=== PATIENT | male | born 1965 | race Caucasian/White ===

== ENCOUNTER 2016-06-01 10:53 | Day surgery (SDC) | payer OTHER ==
[2016-05-29 15:15] VITALS: BMI 28.8
[~2016-06-01 10:53] MED LIST: LACTATED RINGERS 1,000 ML IV SCH
[2016-06-01] MEDS ORDERED: LIDOCAINE 1% 20 ML VIAL (10MG/ML) FOR IV START INTRADERMA ONE (11:07)
[2016-06-01 11:15] VITALS: RESP 16; TEMP 97.7
[2016-06-01 11:17] LABS: Glucose,Whole Blood 137 mg/dL (75-99)
[2016-06-01] MEDS ORDERED: LIDOCAINE 1% INJ 10MG/ML (20 ML MDV) ONE (11:20)
[2016-06-01] MEDS ORDERED: PROPOFOL 10 MG/ML 20 ML VIAL IV ONE (11:20)
--- NOTE | 2016-06-01 11:27 | P.GSHP ---
History of Present Illness H&P Date: 06/01/16 Chief Complaint: Screening colonoscopy This a 51-year-old male referred from Dr. Elisabeth Jain. Patient presents today for screening colonoscopy. He's never had a colonoscopy performed before. Patient has a strong family history of colon cancer with his father having colon cancer. Past Medical History Past Medical History: Diabetes Mellitus, Hyperlipidemia, Hypertension History of Any Multi-Drug Resistant Organisms: None Reported Past Surgical History: Orthopedic Surgery Additional Past Surgical History / Comment(s): LEFT SHOULDER SURGERY Past Anesthesia/Blood Transfusion Reactions: No Reported Reaction Past Psychological History: No Psychological Hx Reported Smoking Status: Never smoker Past Alcohol Use History: Occasional Past Drug Use History: None Reported - Past Family History Mother Family Medical History: No Reported History, Cancer (Colon cancer) Brother(s) Family Medical History: Cancer Additional Family Medical History / Comment(s): LYMPHOMA Father Family Medical History: Cancer Additional Family Medical History / Comment(s): COLON CANCER Medications and Allergies Home Medications Medication Instructions Recorded Confirmed Type Atorvastatin [Lipitor] 40 mg PO HS 05/29/16 06/01/16 History Levothyroxine Sodium [Synthroid] 75 mcg PO DAILY 05/29/16 06/01/16 History Lisinopril [Zestril] 10 mg PO DAILY 05/29/16 06/01/16 History amLODIPine [Norvasc] 5 mg PO HS 05/29/16 06/01/16 History metFORMIN HCL [Glucophage] 500 mg PO TID 05/29/16 06/01/16 History Allergies Allergy/AdvReac Type Severity Reaction Status Date / Time No Known Allergies Allergy Verified 06/01/16 11:05 Surgical - Exam Vital Signs Temp Pulse Resp BP Pulse Ox 97.7 F 85 16 130/73 96 06/01/16 11:11 06/01/16 11:11 06/01/16 11:11 06/01/16 11:11 06/01/16 11:11 - General well developed, well nourished, no distress - Eyes PERRL - ENT normal pinna - Neck no masses - Respiratory normal expansion - Cardiovascular Rhythm: regular - Abdomen Abdomen: non tender Results - Labs Abnormal Lab Results - Last 24 Hours (Table) 06/01/16 Range/Units 11:14 POC Glucose (mg/dL) 137 H (75-99) mg/dL Assessment and Plan Plan: 51-year-old male. We'll perform initial screening colonoscopy.
--- NOTE | 2016-06-01 11:41 | P.OP ---
Date of Procedure: 06/01/16 Preoperative Diagnosis: Screening colonoscopy Postoperative Diagnosis: Normal colon Procedure(s) Performed: Colonoscopy Anesthesia: MAC Surgeon: Curly Lemos Pathology: none sent Condition: stable Disposition: PACU Description of Procedure: PROCEDURE: The patient was placed on the endoscopy table in the lateral position. Digital rectal examination was performed which revealed no abnormalities. The prostate was symmetrical without nodules. Flexible colonoscope was then placed in the patient's anus and passed throughout the entire colon. The ileocecal valve was visualized. The cecum, ascending, transverse, descending and sigmoid colon were normal. The rectum was normal as well. There were no masses, polyps or diverticula noted in the entire colon. SUMMARY OF FINDINGS: Normal colonoscopy.
[2016-06-01 12:16] VITALS: BP 103/65; PULSE 67
== END 2016-06-01 12:48 | disposition home or self-care (01) ==
LOC: ORWHC2ENDO 10:53
PROVIDERS: ATTEND Surgery
DX: Z12.11 Encounter for screening for malignant neoplasm of colon (principal); Z80.0 Family history of malignant neoplasm of digestive organs; I10 Essential (primary) hypertension; E78.5 Hyperlipidemia, unspecified; E11.9 Type 2 diabetes mellitus without complications; Z79.84 Long term (current) use of oral hypoglycemic drugs; Z79.899 Other long term (current) drug therapy
CPT/HCPCS: J2001; J2704; G0105; 99153

== ENCOUNTER → 2017-10-29 | Outpatient (CLI) | payer OTHER ==
[2017-10-30 12:49] LABS: Smooth Muscle Antibody 9 UNITS (<20)
== END | disposition home or self-care (01) ==
LOC: LABWHC1 11:24
PROVIDERS: ATTEND Psychiatry & Neurology Pain Medicine
DX: H02.409 Unspecified ptosis of unspecified eyelid (principal); R13.12 Dysphagia, oropharyngeal phase
CPT/HCPCS: 36415; 82550; 83516; 83519

== ENCOUNTER → 2017-11-15 | Outpatient (CLI) | payer OTHER ==
--- NOTE | 2017-11-15 10:15 | CT ---
EXAMINATION TYPE: CT chest wo con DATE OF EXAM: 11/15/2017 COMPARISON: NONE HISTORY: Ptosis, thymus, possible thyroid disorder, trouble swallowing CT DLP: 491.0 mGycm. Automated Exposure Control for Dose Reduction was Utilized. TECHNIQUE: CT scan of the thorax is performed without IV contrast. FINDINGS: LUNGS: The lungs are grossly clear, there is no concerning parenchymal mass or nodule identified. T here is no pleural effusion or pneumothorax seen. The tracheobronchial tree is patent. MEDIASTINUM: Lack of IV contrast is noted to limit evaluation for mediastinal and especially hilar ad enopathy. There are no definitive greater than 1 cm hilar or mediastinal lymph nodes. No cardiomega ly or pericardial effusion is seen. There is mild focal coronary artery calcification proximal LAD or igin axial image 30. Thyroid is somewhat small in size. 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 Mild multilevel spurri ng in the spine is present. There is just under 1 cm left adrenal mass or nodule axial image 59, Houn sfield units are greater than 10. There is presumed benign based on size. Consider further investigat ion. IMPRESSION: Somewhat small thyroid. No suspicious anterior superior mediastinal mass or thymic neopla sm.
--- NOTE | 2017-11-15 11:08 | CT ---
EXAMINATION TYPE: CT soft tissue neck wo con DATE OF EXAM: 11/15/2017 HISTORY: Trouble swallowing, possible thyroid issues COMPARISON: NONE CT DLP: 380.80 mGycm. Automated Exposure Control for Dose Reduction was Utilized. TECHNIQUE: CT scan of the neck is performed without IV contrast, axial images are obtained, coronal and sagittal reformatted images are reviewed. FINDINGS: Evaluation suboptimal due to lack of IV contrast limiting evaluation for subcentimeter lymp h nodes and mucosal lesions. Airway: Thyroid gland is small in size, there is greater than 1 cm right thyroid nodule coronal image 37 that warrants follow-up. Parotid/submandibular glands: No gross abnormality seen. Carotid/Vascular Structures: No suspicious calcified plaque is present in carotid bulb level bilatera lly Osseous Structures: Spine is straightened with mild spurring C5-C6 level. Slight S-shaped scoliotic c urvature on coronal images is noted. Other: No suspicious greater than 1 cm neck adenopathy is seen. IMPRESSION: There is greater than 1 cm right thyroid nodule. Follow-up thyroid ultrasound is advised to further evaluate and characterize.
--- NOTE | 2017-11-15 11:17 | FL ---
EXAMINATION TYPE: FL barium swallow DATE OF EXAM: 11/15/2017 CLINICAL HISTORY: Proximal dysphasia for 2 years. TECHNIQUE: A double contrast esophagram is performed utilizing air and barium. A total of 1.22 geraldo eduardo of fluoroscopic time was utilized during procedure. 29 spot images are saved during procedure. COMPARISON: Same-day CT neck and chest studies. FINDINGS: The esophagus shows satisfactory motility and emptying into the stomach. There is persiste nt posterior impression or narrowing of the proximal esophagus near origin at roughly C6 level, no co rresponding abnormality is seen on CT. This could reflect a congenital bridge or focal stricture. No mucosal irregularity is seen to suggest neoplasm. Small sliding-type hiatal hernia is present. No int raluminal mass is noted. No significant gastroesophageal reflux was seen during real time performance of this study. Patient did have to episodes of aspiration during performance of study, one cleared w ith coughing, second did not completely clear with coughing. IMPRESSION: Proximal posterior proximal esophagus narrowing near origin could be congenital anomaly a s no obvious mass or neoplasm is present when correlating with same day CT. Cannot exclude mild to m oderate posterior stricture. Patient had 2 episodes of aspiration. Consider further investigation wit h speech therapy referral and/or modified barium swallow to reassess.
== END | disposition home or self-care (01) ==
LOC: RADCTMAIN 09:13
PROVIDERS: ATTEND Psychiatry & Neurology Neurology
DX: K22.8 Other specified diseases of esophagus (principal); E04.1 Nontoxic single thyroid nodule; E32.9 Disease of thymus, unspecified
CPT/HCPCS: 70490; 71250; 74220

== ENCOUNTER → 2017-11-21 | Outpatient (CLI) | payer OTHER ==
--- NOTE | 2017-11-22 01:47 | MR ---
EXAMINATION TYPE: MR brain wo con DATE OF EXAM: 11/21/2017 COMPARISON: NONE HISTORY: Dizzy, Headaches Standard multiplanar, multisequence MRI departmental protocol Multiplanar, multisequence images of the brain were acquired. Diffusion weighted imaging was performe d. FINDINGS: The ventricles and sulci appear fairly normal. There is no mass effect nor midline shift. T here is no sign of intracranial hemorrhage. I see no evidence of cerebral edema. There is very mild t hinning of the corpus callosum. Brainstem is intact. Sella turcica appears normal. There is no eviden ce of a posterior fossa mass. IMPRESSION: There is mild cerebral atrophy appropriate for age. Otherwise negative exam. Mild thinning of the cor pus callosum.
== END | disposition home or self-care (01) ==
LOC: RADMRIMAIN 16:23
PROVIDERS: ATTEND Psychiatry & Neurology Pain Medicine
DX: G31.9 Degenerative disease of nervous system, unspecified (principal); G93.89 Other specified disorders of brain; H53.8 Other visual disturbances; H02.409 Unspecified ptosis of unspecified eyelid
CPT/HCPCS: 70551

== ENCOUNTER → 2017-12-18 | Outpatient (CLI) | payer OTHER ==
[2017-12-18 13:14] LABS: T4, Free (Free Thyroxine) 0.95 ng/dL (0.78-2.19)
== END | disposition home or self-care (01) ==
LOC: LABWHC1 11:29
PROVIDERS: ATTEND Psychiatry & Neurology Pain Medicine
DX: E03.9 Hypothyroidism, unspecified (principal); R53.83 Other fatigue
CPT/HCPCS: 36415; 84439; 84443; 84481

== ENCOUNTER 2018-01-28 12:23 | Day surgery (SDC) | payer OTHER ==
[2018-01-27 09:34] VITALS: BMI 29.0
[~2018-01-28 12:23] MED LIST changes: -LACTATED RINGERS 1,000 ML IV SCH; +SODIUM CHLORIDE 0.9% 1,000 ML IV SCH
[2018-01-28 13:05] VITALS: BP 121/77; PULSE 83; RESP 18; TEMP 98.1
--- NOTE | 2018-01-28 15:41 | P.PCN ---
Preoperative Diagnosis: Symptoms Recurrent dizzy spells and loss of consciousness Twelve-lead ECG Sinus rhythm normal NE narrow QRS early repolarization abnormality inferolaterally Tilt table test per protocol This line heart rate 62 beats a minute Baseline blood pressure 113/68 mmHg patient was tilted upright at an angle of 70 per protocol is a mild decrease in blood pressure to 93 mmHg systolic within the first 2 minutes and thereafter the blood pressure remained in the high 90s. He had no symptoms When he was laid supine his blood pressure returned 106/63 mmHg impression No evidence for neurocardiogenic syncope but with assuming upright position there was a drop in blood pressure of 5-10 mmHg and a corresponding mild increase in heart rate.
== END 2018-01-28 14:58 | disposition home or self-care (01) ==
LOC: CATHEP 12:23
PROVIDERS: ATTEND Internal Medicine Clinical Cardiac Electrophysiology
DX: R42 Dizziness and giddiness (principal); R55 Syncope and collapse
CPT/HCPCS: 93660

== ENCOUNTER → 2018-05-05 | Outpatient (CLI) | payer OTHER ==
--- NOTE | 2018-05-05 12:08 | FL ---
EXAMINATION TYPE: FL barium swallow w video DATE OF EXAM: 05/05/2018 MODIFIED SWALLOW / DEGLUTITION STUDY CLINICAL HISTORY: Dysphagia. TECHNIQUE: Deglutition study is performed utilizing thin liquid barium, barium thick putting, and ba rium coated cracker. A total of 1 minute 53 seconds of fluoroscopic time was utilized during procedur e. 0 spot images are saved to PACS. COMPARISON: Prior CT neck and esophagram November 15, 2017. FINDINGS: The oral phase shows satisfactory initiation with all modalities tested. There is poor pr opagation with diminished posterior tongue base motion. Satisfactory mastication is seen with solid m odalities tested. There is no evidence of penetration or aspiration with any modality tested. Mild t o severe pharyngeal residue was appreciated more prominent with more viscous modalities. There is red emonstration in the proximal esophagus of well-defined posterior narrowing or cricopharyngeal bar jerad t could reflect a congenital bridge or focal stricture. IMPRESSION: No aspiration. Persistent prominent cricopharyngeal bar causing significant narrowing of the proximal esophagus. Diminished propagation could be related to muscular dysfunction. This accoun ts for sparing degrees of pharyngeal residual more prominent with more viscous modalities. Consider E NT and/or GI referral. Please refer to speech therapist notes for further details if necessary.
== END ==
LOC: RADFLMAIN 10:54
PROVIDERS: ATTEND Internal Medicine
DX: K22.8 Other specified diseases of esophagus (principal)
CPT/HCPCS: 74230

== ENCOUNTER 2018-07-11 06:40 | Day surgery (SDC) | payer OTHER ==
[2018-07-09 14:42] VITALS: BMI 29.7
[~2018-07-11 06:40] MED LIST changes: +LACTATED RINGERS 1,000 ML IV SCH; -SODIUM CHLORIDE 0.9% 1,000 ML IV SCH
[2018-07-11 07:19] VITALS: TEMP 98.2
[2018-07-11] MEDS ORDERED: LIDOCAINE 1% INJ 10MG/ML (20 ML MDV) ONE (07:32)
[2018-07-11] MEDS ORDERED: PROPOFOL 10 MG/ML 20 ML VIAL IV ONE (07:32)
[2018-07-11 07:55] VITALS: RESP 16
--- NOTE | 2018-07-11 08:09 | P.PCN ---
Date of Procedure: 07/11/18 Procedure(s) Performed: BRIEF HISTORY: Patient is a 53-year-old, pleasant, white male, with history of ocular pharyngeal muscular dystrophy has been having progressive dysphagia to solids for the last 5 years duration. Lately her symptoms have been getting worse. Often with solids but never with liquids. He did have a barium esophagogram done that showed prominent fecal pharyngeal brought into the proximal esophagus with narrowing and poor propagation of food in the pharynx and poor pharyngeal peristalsis. Because of these findings is scheduled for an upper endoscopy with possible dilation. PROCEDURE PERFORMED: Esophagogastroduodenoscopy with biopsy. PREOPERATIVE DIAGNOSIS: Progressive dysphagia to solids of 5 years duration. IV sedation per anesthesia. PROCEDURE: After informed consent was obtained, the patient was brought into the endoscopy unit. IV sedation was administered by Anesthesia under continuous monitoring. Initially the Olympus GIF-140 video endoscope was inserted into the mouth. Esophagus intubated without any difficulty. It was gradually advanced into the stomach and duodenum and carefully examined. The bulb and the second part of the duodenum appeared normal. The scope at this time was withdrawn to the stomach, adequately insufflated with air, and upon careful examination, mucosa of the antrum had mild gastritis and biopsies were done from this area. The, body, cardia and the fundus appeared normal. The scope was then withdrawn into the esophagus. The GE junction was located at 39 cm from the incisors. The esophagus appeared normal. There were no erosions or ulcerations seen. The proximal cervical esophagus was very carefully examined and no obvious abnormality identified. There was no evidence of paper pharyngeal dysfunction or click of pharyngeal part identified. Biopsies were done from the distal esophagus and the patient tolerated the procedure well. IMPRESSION: 1. Normal-appearing esophagus with no evidence of esophagitis, esophageal stricture or cricopharyngeal dysfunction. 2. Mild antral gastritis. RECOMMENDATIONS: The findings of this examination were discussed with the patient as well as her his family. He was advised to follow with the biopsy results. At this time it appears that the dysphagia is mostly likely oropharyngeal in etiology related to muscular dystrophy.
[2018-07-11 08:16] VITALS: BP 102/69; PULSE 61
[2018-07-11 11:59] LABS: Glucose,Whole Blood 106 mg/dL (75-99)
== END 2018-07-11 08:47 | disposition home or self-care (01) ==
LOC: ORWHC2ENDO 06:40
PROVIDERS: ATTEND Internal Medicine Gastroenterology
DX: K29.50 Unspecified chronic gastritis without bleeding (principal); K20.9 Esophagitis, unspecified; R13.10 Dysphagia, unspecified; I10 Essential (primary) hypertension; E78.5 Hyperlipidemia, unspecified; E11.9 Type 2 diabetes mellitus without complications; E07.9 Disorder of thyroid, unspecified; F17.200 Nicotine dependence, unspecified, uncomplicated; Z79.84 Long term (current) use of oral hypoglycemic drugs; Z79.890 Hormone replacement therapy; Z79.899 Other long term (current) drug therapy
CPT/HCPCS: 88305; 43239; J2001; J2704

== ENCOUNTER → 2020-01-29 | Outpatient (CLI) | payer OTHER ==
[2020-01-29 07:55] LABS: HCT 28.3 % (39.0-53.0); HGB 9.2 gm/dL (13.0-17.5); MCHC 32.6 g/dL (31.0-37.0); MCV 101.2 fL (80.0-100.0); Mean Platelet Volume 8.1; Platelet Count 252 k/uL (150-450); RDW 12.7 % (11.5-15.5); WBC 7.4 k/uL (3.8-10.6)
[2020-01-29 09:09] LABS: Eosinophils # (M) 0.52 k/uL (0-0.7); Monocytes # (M) 0.59 k/uL (0-1.0); Myelocytes # (M) 0.07 k/uL (0); Myelocytes % 1 %; Neutrophils # (M) 4.37 k/uL (1.3-7.7); Neutrophils % (M) 59 %; Nucleated Red Blood Cells 0 /100 WBC (0-0); Total Cells Counted 200
[2020-01-29 10:50] LABS: Folate, Serum 22.7 ng/mL
== END | disposition home or self-care (01) ==
LOC: LABWHC1 06:56
PROVIDERS: ATTEND Internal Medicine
DX: D64.9 Anemia, unspecified (principal); E55.9 Vitamin D deficiency, unspecified; R42 Dizziness and giddiness
CPT/HCPCS: 36415; 82306; 82533; 82746; 85025

== ENCOUNTER → 2020-03-07 | Outpatient (CLI) | payer MEDICARE ==
--- NOTE | 2020-03-07 16:19 | US ---
EXAMINATION TYPE: US thyroid st tissue head/neck DATE OF EXAM: 03/07/2020 COMPARISON: CT 11/15/17 CLINICAL HISTORY: 55-year-old male E04.1 Thyroid nodule. Pt on thyroid meds TECHNIQUE: Multiple sonographic images of the thyroid gland are obtained. FINDINGS: GLAND SIZE: Right Lobe: 3.9 x 1.1 x 1.4 cm Overall Parenchyma: homogenous Left Lobe: 3.1 x 1.0 x 1.1 cm Overall Parenchyma: homogeneous Isthmus Thickness: 0.2 cm NODULES RIGHT: # of nodules measured on right: 3 1. 1.6 X 0.9 x 0.7 cm isoechoic solid nodule at the lower pole with well-defined margins; . This n odule is wider than tall and shows intranodular vascularity. 2. 1.1 X 0.5 x 0.7 cm hypoechoic nodule at the lower pole with well-defined margins; . This nodule is wider than tall and shows intranodular vascularity. 3. 1.0 X 0.5 x 1.1 cm isoechoic solid nodule at the upper pole with well-defined margins; . This no dule is wider than tall and shows intranodular vascularity. LEFT: # of nodules measured on left: 1 1. 0.6 X 0.5 x 0.5 cm isoechoic solid nodule at the lower pole with well-defined margins; . This n odule is wider than tall and shows intranodular vascularity. ISTHMUS: # of nodules measured in the isthmus: 0.2 Bilateral neck scanned, no evidence of lymphadenopathy. Few small anechoic areas seen in left neck largest measuring 0.8 x 0.3 x 0.4 cm possibly some vascula r ectasia or small, benign but thickened lymph nodes IMPRESSION: 3 dominant nodules in the small right lobe measuring from 1.0 to 1.6 cm. A smaller solid nodule in th e left lobe measures 6 mm.
== END | disposition home or self-care (01) ==
LOC: RADUSWWP 14:36
PROVIDERS: ATTEND Internal Medicine
DX: E04.2 Nontoxic multinodular goiter (principal)
CPT/HCPCS: 76536

== ENCOUNTER → 2020-11-29 | Outpatient (CLI) | payer MEDICARE ==
--- NOTE | 2020-11-29 16:02 | US ---
EXAMINATION TYPE: US kidneys/renal and bladder DATE OF EXAM: 11/29/2020 COMPARISON: CT CLINICAL HISTORY: R31.9 hematuria. Rt kidney congenitally absent EXAM MEASUREMENTS: Right Kidney: absent cm Left Kidney: 13.5 x 7.0 x 6.5 cm Post Void Residual Volume: 112.7 mL Right Kidney: absent Left Kidney: No hydronephrosis or masses seen Bladder: wnl Bilateral Jets seen: Left only Normal Post Void Residual: No There is no evidence for hydronephrosis at this point in time. No nephrolithiasis is seen. No ganesh s are identified. The urinary bladder is anechoic. IMPRESSION: 1. Right kidney is absent. 2. Unremarkable left kidney. 3. Post void residual urinary bladder volume 113 mL.
== END | disposition home or self-care (01) ==
LOC: RADUSWWP 13:56
PROVIDERS: ATTEND Internal Medicine
DX: R31.9 Hematuria, unspecified (principal)
CPT/HCPCS: 76770